=== PATIENT | male | born 1995 | race Caucasian/White ===

== ENCOUNTER 2019-10-21 16:35 | Emergency (ER) | payer SELFPAY ==
[2019-10-21] MEDS ORDERED: Ketorolac Tromethamine 30 MG/ML VIAL ONE (16:52)
--- NOTE | 2019-10-21 17:07 | RAD ---
EXAM: Chest 2 views: HISTORY: Left lower chest pain for one week COMPARISON: None. FINDINGS: There is a normal-sized cardiomediastinal silhouette. There is no evidence of consolidation, mass, or pleural effusion. The bones are unremarkable. IMPRESSION: No evidence of acute cardiopulmonary disease
== END 2019-10-21 17:59 | disposition home or self-care (01) ==
LOC: ERS 16:35
DX: R07.89 Other chest pain (principal)
CPT/HCPCS: 71046; 96372; J1885